=== PATIENT | male | born 1985 | race Caucasian/White ===

== ENCOUNTER 2024-12-19 04:52 | Emergency (ER) | payer OTHER | END 2024-12-19 07:00 | disposition home or self-care (01) | LOC: JD.ED 04:52 | DX: S90.112A Contusion of left great toe without damage to nail, initial encounter (principal); S90.122A Contusion of left lesser toe(s) without damage to nail, initial encounter; Y04.8XXA Assault by other bodily force, initial encounter | CPT/HCPCS: 29125; 73130-26-LT; 73130-LT; 99284-25 ==

== ENCOUNTER 2025-02-05 15:24 | Emergency (ER) | payer SELFPAY ==
[2025-02-05 15:58] LABS: BASOPHILS ABSOLUTE AUTO 0.1 K/mm3 (0.0-0.2); BASOPHILS PERCENT AUTO 0.7 % (0.0-1.0); EOSINOPHILS ABSOLUTE AUTO 0.1 K/mm3 (0.0-0.4); EOSINOPHILS PERCENT AUTO 1.7 % (0.0-6.0); IMMATURE GRAN ABSOLUTE AUTO 0.04 K/mm3 (0.00-0.05); IMMATURE GRAN PERCENT AUTO 0.5 % (0.0-0.4); LYMPHOCYTES ABSOLUTE AUTO 1.8 K/mm3 (1.0-4.8); LYMPHOCYTES PERCENT AUTO 22.5 % (24.0-44.0); MEAN PLATELET VOLUME 11.7 fl (9.4-12.4); MONOCYTES ABSOLUTE AUTO 0.8 K/mm3 (0.0-0.8); MONOCYTES PERCENT AUTO 9.9 % (0.0-8.0); NEUTROPHILS ABSOLUTE AUTO 5.3 K/mm3 (1.8-7.7); NEUTROPHILS PERCENT AUTO 64.7 % (41.0-71.0); NRBC ABSOLUTE 0.00 (0.00-0.02); NRBC PERCENT 0.0 % (0.0-0.2); PLATELET COUNT,PLT 299 K/mm3 (150-400); RED BLOOD CELL COUNT 5.21 M/mm3 (4.52-5.90); WHITE BLOOD CELL COUNT,WBC 8.12 K/mm3 (3.9-11.3)
[2025-02-05] MEDS: Sodium Chloride 0.9% 10 ML Syringe FLUSH ONE (16:05)
[2025-02-05] MEDS: Iopamidol 612 MG/ML 100 ML Bottle IVPUSH ONE (16:05)
[2025-02-05] MEDS: Ondansetron 4 MG/2 ML SDV IVPUSH ONE (16:21)
[2025-02-05 16:22] LABS: INR 1.09
[2025-02-05 16:25] LABS: A/G RATIO 1.1 (1-2); ALANINE AMINOTRANSFERASE,ALT 67.0 U/L (16-63); ASPARTATE AMNIOTRANSFERASE,AST 31.0 U/L (15-37); BILIRUBIN TOTAL 0.5 mg/dL (0.2-1.0); BLOOD UREA NITROGEN,BUN 19.0 mg/dL (7-18); CARBON DIOXIDE,CO2 27.0 mEq/L (21-32); CHLORIDE,CL 103.0 mEq/L (98-107); CREATINE KINASE,CK 69.0 U/L (39-308); CREATININE 1.2 mg/dL (0.7-1.3); EST CRCL DRUG DOSING (CG) 99.76 mL/min; ESTIMATED GFR 79.0 mL/min (>60); GLUCOSE RANDOM 103.0 mg/dL (70-99); POTASSIUM,K 3.6 mEq/L (3.5-5.1); PROTEIN TOTAL,TP 8.1 g/dl (6.4-8.2); SODIUM,NA 139.0 mEq/L (136-145)
[2025-02-05 17:30] LABS: BUPRENORPHINE SCREEN,URINE NEGATIVE (CUTOFF=10); METHADONE SCREEN, URINE NEGATIVE (CUT0FF=200); METHAMPHETAMINES SCREEN, URINE NEGATIVE (CUTOFF=500); OXYCODONE SCREEN,URINE NEGATIVE (CUT0FF=100); THC SCREEN,URINE 20 NG/ML NEGATIVE (CUTOFF=50)
[2025-02-05 17:31] LABS: AMPHETAMINES SCREEN, URINE NEGATIVE (CUTOFF=500)
== END 2025-02-05 18:50 | disposition home or self-care (01) ==
LOC: JD.ED 15:24
DX: R55 Syncope and collapse (principal); S01.21XA Laceration without foreign body of nose, initial encounter; K59.00 Constipation, unspecified; Z79.899 Other long term (current) drug therapy; X58.XXXA Exposure to other specified factors, initial encounter
CPT/HCPCS: 36415; 70450; 70486; 74177; 80053; 80306; 82550; 83690; 83735; 85025; 85610; 96361; 96374; 99284; J2405; J7030; Q9967